=== PATIENT | male | born 1995 | race Caucasian/White ===

== ENCOUNTER 2022-05-15 13:56 | Emergency (ER) | payer OTHER ==
[~2022-05-15] VITALS: Ht 193 cm; Wt 90.7 kg
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
[2022-05-15] MEDS ORDERED: TETANUS,DIPTH,PERTUSS P/F (BOOSTRIX) 0.5 ML VIAL IM ONE (14:45)
[2022-05-15 15:38] VITALS: BP 156/91
== END 2022-05-15 15:39 | disposition home or self-care (01) ==
LOC: ER 13:58
DX: T21.21XA Burn of second degree of chest wall, initial encounter (principal); T31.10 Burns involving 10-19% of body surface with 0% to 9% third degree burns; Z23 Encounter for immunization; X06.2XXA Exposure to ignition of other clothing and apparel, initial encounter; Y99.0 Civilian activity done for income or pay
CPT/HCPCS: 90715